=== PATIENT | female | born 1940 | race Caucasian/White ===

== ENCOUNTER 2016-09-14 17:30 | Inpatient (IN) | payer MEDICARE, OTHER ==
[~2016-09-14] VITALS: Ht 154.9 cm; Wt 79.3 kg
[~2016-09-14 17:30] MED LIST: ALEN35TA24 PO; CYAN1000P IM; FOLI800T12 PO; LORT5TAB PO; NEXI40CA PO; SIMV40 PO; SYNT25TA PO
[2016-09-14 17:42] VITALS: BP 158/88; PULSE 77; RESP 18; TEMP 98; O2SAT 99
[2016-09-14] MEDS ORDERED: SODIUM CHLOR 0.9% 1000 ML INJ 1,000 ML IV SCH (19:14)
[2016-09-14] MEDS ORDERED: SODIUM CHLORIDE 0.9% FLUSH 5 ML FLUSH IVF PRN (19:15)
[2016-09-14] MEDS ORDERED: ONDANSETRON HCL 4 MG/2 ML VIAL IVP ONE (19:15)
[2016-09-14 19:19] VITALS: BP 167/58; PULSE 85; RESP 16; TEMP 98; O2SAT 98
--- NOTE | 2016-09-14 19:21 | PD ---
HPI Chief Complaint: GI Complaint Time Seen by Provider: 19:06 Travel History International Travel<30 days: No Contact w/Intl Traveler<30days: No Traveled to known affect area: No History of Present Illness HPI The patient is a 76-year-old female that complains of bright red rectal bleeding since this morning. She states she almost fainted when she was on the commode. She does have bilateral lower quadrant cramping/pain. She has been nauseated all day and has not eaten or drank anything and states she feels dehydrated. She denies any vomiting or fever. She is a patient of Dr. Casandra Shetty in [place] and has no physician attached to this hospital. She has never had any episodes like this before. Her pain at this time as a 0/10. Her paper steamer is Dr. Tello who practices at [facility]. PFSH Past Medical History Diminished Hearing: No Gastrointestinal Disorders: Yes (IBS ) Medical other: Yes (Cataracts ) Immunizations Current: Yes Influenza Vaccination: Yes Past Surgical History Appendectomy: Yes Section: Yes (1966) Cholecystectomy: Yes Hysterectomy: Yes Tonsillectomy: Yes (1944) Social History Alcohol Use: No Tobacco Use: No Substance Use: No Allergies-Medications (Allergen,Severity, Reaction): Coded Allergies: Aspirin (Verified Allergy, Severe, FAINT, 09/14/16) Penicillin (Verified Allergy, Severe, LIMB NUMBNESS, 09/14/16) Diazepam (Verified Adverse Reaction, Severe, HALLUCINATIONS, 09/14/16) Codeine (Verified Adverse Reaction, Intermediate, VOMITING/DIARRHEA, ) Fluticasone (Verified Adverse Reaction, Intermediate, VOMITING/DIARRHEA, ) Keflex (Verified Adverse Reaction, Intermediate, VOMITING/DIARRHEA, ) Morphine (Verified Adverse Reaction, Intermediate, VOMITING/DIARRHEA, 09/14) Salmeterol Xinafoate (Verified Adverse Reaction, Intermediate, VOMITING/ DIARRHEA, 09/14/16) See Uncoded Allergy/Adv Reaction (Verified Adverse Reaction, Intermediate , VOMITING/DIARRHEA, 09/14/16) ALL MYACINS AND TIOTROPIUM BROMIDE Tetanus Immune Globulin (Verified Adverse Reaction, Intermediate, VOMITING /DIARRHEA, 09/14/16) Tetanus Toxoid (Verified Adverse Reaction, Intermediate, VOMITING/DIARRHEA , 09/14/16) Tramadol (Verified Adverse Reaction, Intermediate, VOMITING/DIARRHEA, 09/14) Reported Meds & Prescriptions Reported Meds & Active Scripts Active Lortab 5/500 (Acetaminophen/Hydrocodone Bitart) 5 Mg/500 Mg Tab 1 Tab PO Q6 Reported Vitamin B12 (Cyanocobalamin) 1,000 Mcg/Ml Inj 1,000 Mcg IM MONTHLY Alendronate Sodium 35 Mg Tab 35 Mg PO DAILY Folate (Folic Acid) 800 Mcg Tab 800 Mcg PO DAILY Synthroid (Levothyroxine Sodium) 25 Mcg Tab 25 Mcg PO DAILY Zocor 40 Mg Tab (Simvastatin) 40 Mg Tab 40 Mg PO HS Nexium (Esomeprazole) 40 Mg Cap 40 Mg PO DAILY Review of Systems Except as stated in HPI: all other systems reviewed are Neg Physical Exam Narrative GENERAL: The patient is alert, oriented 3 in minimal apparent distress with her abdominal discomfort. Her vital signs show blood pressure 158/88 but otherwise normal. She does not appear anemic. She does appear mildly dehydrated. SKIN: Warm and dry. HEAD: Atraumatic. Normocephalic. EYES: Pupils equal and round. No scleral icterus. No injection or drainage. ENT: No nasal bleeding or discharge. Mucous membranes pink and moist. NECK: Trachea midline. No JVD. CARDIOVASCULAR: Regular rate and rhythm. No murmur appreciated. RESPIRATORY: No accessory muscle use. Clear to auscultation. Breath sounds equal bilaterally. GASTROINTESTINAL: Abdomen soft, with slight discomfort to direct palpation in the bilateral lower quadrants, nondistended. Hepatic and splenic margins not palpable. No guarding or rebound is present. MUSCULOSKELETAL: No obvious deformities. No clubbing. No cyanosis. No edema. NEUROLOGICAL: Awake and alert. No obvious cranial nerve deficits. Motor grossly within normal limits. Normal speech. PSYCHIATRIC: Appropriate mood and affect; insight and judgment normal. RECTAL EXAM: No masses or tenderness, stool is bright red and strongly guaiac positive. No hemorrhoids are noted. No hemorrhoids are palpated within the rectum. Data Data Last Documented VS Vital Signs Date Time Temp Pulse Resp B/P Pulse Ox O2 Delivery O2 Flow Rate FiO2 09/14/16 19:26 98 Room Air 09/14/16 19:19 98.0 85 16 167/58 Orders Complete Blood Count With Diff (09/14/16 19:14) Comprehensive Metabolic Panel (09/14/16 19:14) Lipase (09/14/16 19:14) Prothrombin Time / Inr (Pt) (09/14/16 19:14) Act Partial Throm Time (Ptt) (09/14/16 19:14) Urinalysis - C+S If Indicated (09/14/16 19:14) Iv Access Insert/Monitor (09/14/16 19:14) Ecg Monitoring (09/14/16 19:14) Oximetry (09/14/16 19:14) Ondansetron Inj (Zofran Inj) (09/14/16 19:15) Sodium Chlor 0.9% 1000 Ml Inj (Ns 1000 M (09/14/16 19:14) Sodium Chloride 0.9% Flush (Ns Flush) (09/14/16 19:15) Urine Culture (09/14/16 19:45) Labs Laboratory Tests Test 09/14/16 09/14/16 19:45 20:27 Prothrombin Time 10.5 SEC Prothromb Time International 1.0 RATIO Ratio Activated Partial 21.7 SEC Thromboplast Time Urine Color YELLOW Urine Turbidity CLOUDY Urine pH 6.0 Urine Specific [place] 1.018 Urine Protein NEG mg/dL Urine Glucose (UA) NEG mg/dL Urine Ketones 15 mg/dL Urine Occult Blood SMALL Urine Nitrite POS Urine Bilirubin NEG Urine Leukocyte Esterase SMALL Urine RBC 3-5 /hpf Urine WBC 50-99 /hpf Urine Squamous Epithelial 6-8 /hpf Cells Urine Bacteria MANY /hpf Microscopic Urinalysis Comment CULTURE INDICATED Sodium Level 141 MEQ/L Potassium Level 4.2 MEQ/L Chloride Level 105 MEQ/L Carbon Dioxide Level 26.2 MEQ/L Anion Gap 10 MEQ/L Blood Urea Nitrogen 13 MG/DL Creatinine 1.30 MG/DL Estimat Glomerular Filtration 40 ML/MIN Rate Random Glucose 103 MG/DL Calcium Level 9.7 MG/DL Total Bilirubin 0.6 MG/DL Aspartate Amino Transf 27 U/L (AST/SGOT) Alanine Aminotransferase 28 U/L (ALT/SGPT) Alkaline Phosphatase 137 U/L Total Protein 7.1 GM/DL Albumin 3.5 GM/DL Lipase 67 U/L White Blood Count 11.2 TH/MM3 Red Blood Count 4.79 MIL/MM3 Hemoglobin 14.7 GM/DL Hematocrit 44.1 % Mean Corpuscular Volume 92.1 FL Mean Corpuscular Hemoglobin 30.6 PG Mean Corpuscular Hemoglobin 33.3 % Concent Red Cell Distribution Width 12.8 % Platelet Count 267 TH/MM3 Mean Platelet Volume 8.5 FL Neutrophils (%) (Auto) 84.2 % Lymphocytes (%) (Auto) 5.3 % Monocytes (%) (Auto) 7.1 % Eosinophils (%) (Auto) 0.3 % Basophils (%) (Auto) 3.1 % Neutrophils # (Auto) 9.5 TH/MM3 Lymphocytes # (Auto) 0.6 TH/MM3 Monocytes # (Auto) 0.8 TH/MM3 Eosinophils # (Auto) 0.0 TH/MM3 Basophils # (Auto) 0.3 TH/MM3 CBC Comment DIFF FINAL Differential Comment MDM Medical Decision Making Medical Screen Exam Complete: Yes Emergency Medical Condition: Yes Medical Record Reviewed: Yes Interpretation(s) The urine is cloudy with small occult blood and positive nitrite and small leukocyte esterase and 50-99 white cells and many bacteria and culture is indicated. The CBC is normal except for a white count of 11,200. The coagulation profile is normal. The complete metabolic profile shows a creatinine of 1.3, GFR 40, alkaline phosphatase of 137 but is otherwise unremarkable. The lipase is normal. Differential Diagnosis Diverticular bleed, bleeding from polyp, unspecified lower GI bleed Narrative Course The patient has been here in the emergency department for 2 hours and she has had 2 bloody stools while she was here. Her blood work is normal and she is not anemic. She does continue to bleed bright red blood from the rectum. The patient passes virtually all blood and no stool per rectum when she goes to the bathroom. Impression, lower GI bleed Plan, the patient is admitted to Dr. Bai. Critical Care Narrative The patient has lower GI bleeding. The bleeding is always bright red and may be from diverticular bleeding. Many other causes are possible. She continues to bleed rectally and has been to the bathroom several times. He is still cramping and feels like she needs to go again shortly. Physician Communication Physician Communication I discussed the patient with Dr. Bai. The patient will be admitted to her here at [place]. Diagnosis Primary Impression: Lower GI hemorrhage Admitting Information Admitting Physician Requests: Admit Rosalio Miller MD Sep 14, 2016 19:21
[2016-09-14 19:26] VITALS: O2SAT 98
[2016-09-14 19:57] LABS: BLOOD, URINE SMALL (NEG); GLUCOSE,URINE NEG (NEG); KETONE, URINE 15 mg/dL (NEG); NITRITE,URINE POS (NEG)
[2016-09-14 19:58] LABS: URINE COLOR YELLOW (YELLW/STRAW)
[2016-09-14 20:01] LABS: BACTERIA, URINE MANY /hpf; COMMENT (UR) CULTURE INDICATED; CULTURE IF INDICATED CULTURE INDICATED
[2016-09-14 20:05] LABS: CHLORIDE 105 MEQ/L (98-107); SODIUM (NA) 141 MEQ/L (136-145)
[2016-09-14 20:09] LABS: ANION GAP 10 MEQ/L (5-15); BICARBONATE 26.2 MEQ/L (21.0-32.0); BLOOD UREA NITROGEN 13 MG/DL (7-18)
[2016-09-14 20:12] LABS: ALT (GPT) 28 U/L (10-53); AST (GOT) 27 U/L (15-37); GLOMERULAR FILTRATION RATE 40 ML/MIN (>89)
[2016-09-14 20:13] LABS: POTASSIUM 4.2 MEQ/L (3.5-5.1)
[2016-09-14 20:14] LABS: TOTAL BILIRUBIN ADULT 0.6 MG/DL (0.2-1.0)
[2016-09-14 20:15] VITALS: BP 167/66; PULSE 96; RESP 18; O2SAT 97
[2016-09-14 20:15] LABS: ALKALINE PHOSPHATASE 137 U/L (45-117); APTT (PATIENT) 21.7 SEC (24.3-30.1); PROTHROMBIN TIME - PATIENT 10.5 SEC (9.8-11.6)
[2016-09-14 20:36] LABS: AUTOMATED NEUTROPHIL # 9.5 TH/MM3 (1.8-7.7); BASOPHIL # 0.3 TH/MM3 (0-0.2); BASOPHIL % 3.1 % (0.0-2.0); EOSINOPHIL % 0.3 % (0.0-4.0); HEMATOCRIT 44.1 % (35.0-46.0); HEMO FLAGS DIFF FINAL; LYMPH % 5.3 % (9.0-44.0); LYMPHOCYTE # 0.6 TH/MM3 (1.0-4.8); MEAN CELL VOLUME 92.1 FL (80.0-100.0); MEAN CORPUSCULAR HEMOGLOBIN 30.6 PG (27.0-34.0); MEAN CORPUSCULAR HGB CONC 33.3 % (32.0-36.0); MONO % 7.1 % (0.0-8.0); NEUT % 84.2 % (16.0-70.0); PLATELET COUNT 267 TH/MM3 (150-450); RED BLOOD COUNT 4.79 MIL/MM3 (4.00-5.30); RED CELL DISTRIBUTION WIDTH 12.8 % (11.6-17.2); WHITE BLOOD COUNT 11.2 TH/MM3 (4.0-11.0)
[2016-09-14] MEDS: SODIUM CHLOR 0.9% 1000 ML INJ 1,000 ML IV SCH (21:04)
[2016-09-14] MEDS ORDERED: LEVO50TA4 PO (21:14)
[2016-09-14 21:15] VITALS: BP 167/77; PULSE 99; RESP 18; TEMP 98.4; O2SAT 100
[2016-09-14] MEDS ORDERED: SODIUM CHLORIDE 0.9% FLUSH 5 ML FLUSH FLUSH PRN (21:15)
[2016-09-14] MEDS ORDERED: GABA300C5 PO (21:15)
[2016-09-14] MEDS ORDERED: BISACODYL 10 MG SUPP PR PRN (21:15)
[2016-09-14] MEDS ORDERED: SIMV20TA PO (21:15)
[2016-09-14] MEDS ORDERED: ONDANSETRON HCL 4 MG/2 ML VIAL IVP PRN (21:15)
[2016-09-14] MEDS ORDERED: ZANT150T2 PO (21:15)
[2016-09-14] MEDS ORDERED: MONT10TA4 PO (21:16)
[2016-09-14] MEDS ORDERED: HYDR-3580 PO (21:17)
[2016-09-14] MEDS ORDERED: CALC1TAB87 PO (21:18)
[2016-09-14] MEDS ORDERED: CYAN1000P IM (21:18)
[2016-09-14] MEDS ORDERED: VITA100018 PO (21:19)
[2016-09-14] MEDS ORDERED: CALC500T8 PO (21:21)
[2016-09-14] MEDS ORDERED: CALTTAB5 PO (21:21)
[2016-09-14] MEDS ORDERED: CIPROFLOXACIN 400 MG PREMIX 200 ML IV SCH (22:00)
[2016-09-14] MEDS ORDERED: PANTOPRAZOLE SODIUM 40 MG VIAL IV PUSH SCH (22:00)
[2016-09-14] MEDS ORDERED: diphenhydrAMINE HCL 50 MG/ML VIAL IV PUSH ONE (22:15)
[2016-09-14 22:51] VITALS: BP 155/64
[2016-09-14] MEDS: AZTREONAM INJ 1,000 MG in SODIUM CHLORIDE 0.9% INJ 100 ML IV SCH (23:37)
[2016-09-14] MEDS: ACETAMINOPHEN 325 MG TAB PO PRN (23:37)
[2016-09-15 02:12] VITALS: BP 120/61; PULSE 99; RESP 18; TEMP 98.3; O2SAT 95
[2016-09-15 04:00] VITALS: BP 118/72; PULSE 90; RESP 20; TEMP 98.3; O2SAT 98
[2016-09-15] MEDS: AZTREONAM INJ 1,000 MG in SODIUM CHLORIDE 0.9% INJ 100 ML IV SCH ×3 (06:21→22:10)
[2016-09-15 07:18] LABS: CHLORIDE 107 MEQ/L (98-107); POTASSIUM 4.1 MEQ/L (3.5-5.1); SODIUM (NA) 144 MEQ/L (136-145)
[2016-09-15 07:19] LABS: AUTOMATED NEUTROPHIL # 8.3 TH/MM3 (1.8-7.7); BASOPHIL # 0.1 TH/MM3 (0-0.2); BASOPHIL % 0.7 % (0.0-2.0); EOSINOPHIL # 0.1 TH/MM3 (0-0.4); EOSINOPHIL % 0.8 % (0.0-4.0); HEMATOCRIT 43.8 % (35.0-46.0); LYMPH % 9.2 % (9.0-44.0); MEAN CELL VOLUME 92.6 FL (80.0-100.0); MEAN CORPUSCULAR HEMOGLOBIN 30.6 PG (27.0-34.0); MONO % 8.2 % (0.0-8.0); NEUT % 81.1 % (16.0-70.0); PLATELET COUNT 267 TH/MM3 (150-450); RED BLOOD COUNT 4.73 MIL/MM3 (4.00-5.30); RED CELL DISTRIBUTION WIDTH 13.8 % (11.6-17.2); WHITE BLOOD COUNT 10.4 TH/MM3 (4.0-11.0)
[2016-09-15 07:22] LABS: HEMO FLAGS AUTO DIFF
[2016-09-15 07:44] LABS: ALKALINE PHOSPHATASE 125 U/L (45-117); ALT (GPT) 23 U/L (10-53); ANION GAP 8 MEQ/L (5-15); AST (GOT) 17 U/L (15-37); BICARBONATE 29.2 MEQ/L (21.0-32.0); BLOOD UREA NITROGEN 11 MG/DL (7-18); GLOMERULAR FILTRATION RATE 40 ML/MIN (>89); TOTAL BILIRUBIN ADULT 0.6 MG/DL (0.2-1.0)
[2016-09-15 08:00] VITALS: BP 128/57; PULSE 84; RESP 20; TEMP 98.2; O2SAT 96
[2016-09-15 08:27] LABS: SCAN/DIFF AUTO DIFF CONFIRMED
[2016-09-15] MEDS: SODIUM CHLOR 0.9% 1000 ML INJ 1,000 ML IV SCH (08:27)
[2016-09-15] MEDS: SODIUM CHLORIDE 0.9% FLUSH 5 ML FLUSH FLUSH SCH ×2 (08:27→20:11)
[2016-09-15] MEDS: PANTOPRAZOLE SODIUM 40 MG VIAL IV PUSH SCH ×2 (08:27→20:11)
--- NOTE | 2016-09-15 11:09 | HHI.HP ---
[facility] Primary Care Physician Unknown Admission Diagnosis lower GI bleed Diagnoses: Chief Complaint: GI bleeding Travel History International Travel<30 Days: No Contact w/Intl Traveler <30 Da: No Traveled to Known Affected Are: No History of Present Illness Patient is a 76-year-old female with history of hyperlipidemia and possible history of diverticular disease who complains of acute episode of bright red blood per rectum with some abdominal cramping. She had some nausea and recent diarrhea. She had been taken antidiarrheal [id number] and says that she has not been able to keep any food down. Patient has not had any actual vomiting per se but has been very nauseated and not eating. There is no fever. Her pain is mild and cramping and limited to the abdomen and relieved with defecation. She does see her soldering inspector Dr. Tello and has been recommended for further evaluation here in the hospital due to her bleeding. Hemoglobin has remained stable and her pain is relatively mild at this time. She she does still have some maroon colored stools. Review of Systems Constitutional: DENIES: Diaphoretic episodes, Fatigue, Fever, Weight gain, Weight loss, Chills, Dizziness, Change in appetite, Night Sweats Endocrine: DENIES: Abnorml menstrual pattern, Heat/cold intolerance, Polydipsia , Polyuria, Polyphagia Eyes: DENIES: Blurred vision, Diplopia, Eye inflammation, Eye pain, Vision loss , Photosensitivity, Double Vision Ears, nose, mouth, throat: DENIES: Tinnitus, Hearing loss, Vertigo, Nasal discharge, Oral lesions, Throat pain, Hoarseness, Ear Pain, Running Nose, Epistaxis, Sinus Pain, Toothache, Odynophagia Respiratory: DENIES: Apneas, Cough, Snoring, Wheezing, Hemoptysis, Sputum production, Shortness of breath Cardiovascular: DENIES: Chest pain, Palpitations, Syncope, Dyspnea on Exertion , PND, Lower Extremity Edema, Orthopnea, Claudication Gastrointestinal: COMPLAINS OF: Abdominal pain, Bloody stools, Diarrhea, DENIES: Black stools, Constipation, Nausea, Vomiting, Difficulty Swallowing, Anorexia Genitourinary: DENIES: Abnormal vaginal bleeding, Dysmenorrhea, Dyspareunia, Sexual dysfunction, Urinary frequency, Urinary incontinence, Urgency, Hematuria , Dysuria, Nocturia, Vaginal discharge Musculoskeletal: COMPLAINS OF: Back pain, DENIES: Joint pain, Muscle aches, Stiffness, Joint Swelling, Neck pain Integumentary: DENIES: Abnormal pigmentation, Pruritus, Rash, Nail changes, Breast masses, Breast skin changes, Nipple discharge Hematologic/lymphatic: DENIES: Bruising, Lymphadenopathy Immunologic/allergic: DENIES: Eczema, Urticaria Neurologic: DENIES: Abnormal gait, Headache, Localized weakness, Paresthesias, Seizures, Speech Problems, Tremor, Poor Balance Psychiatric: DENIES: Anxiety, Confusion, Mood changes, Depression, Hallucinations, Agitation, Suicidal Ideation, Homicidal Ideation, Delusions Past Family Social History Past Medical History Diverticular disease Osteoporosis Hypothyroidism Hyperlipidemia Past Surgical History Appendectomy Cholecystectomy Hysterectomy Tonsillectomy Reported Medications Reviewed within the medical record, also takes ranitidine for heartburn and an antidiarrheal [id number] Allergies: Coded Allergies: Aspirin (Verified Allergy, Severe, FAINT, 09/14/16) Penicillin (Verified Allergy, Severe, LIMB NUMBNESS, 09/14/16) Ciprofloxacin (Verified Allergy, Intermediate, Itching, 09/14/16) Diazepam (Verified Adverse Reaction, Severe, HALLUCINATIONS, 09/14/16) Codeine (Verified Adverse Reaction, Intermediate, VOMITING/DIARRHEA, ) Fluticasone (Verified Adverse Reaction, Intermediate, VOMITING/DIARRHEA, ) Keflex (Verified Adverse Reaction, Intermediate, VOMITING/DIARRHEA, ) Morphine (Verified Adverse Reaction, Intermediate, VOMITING/DIARRHEA, 09/14) Salmeterol Xinafoate (Verified Adverse Reaction, Intermediate, VOMITING/ DIARRHEA, 09/14/16) See Uncoded Allergy/Adv Reaction (Verified Adverse Reaction, Intermediate , VOMITING/DIARRHEA, 09/14/16) ALL MYACINS AND TIOTROPIUM BROMIDE Tetanus Immune Globulin (Verified Adverse Reaction, Intermediate, VOMITING /DIARRHEA, 09/14/16) Tetanus Toxoid (Verified Adverse Reaction, Intermediate, VOMITING/DIARRHEA , 09/14/16) Tramadol (Verified Adverse Reaction, Intermediate, VOMITING/DIARRHEA, 09/14) Active Ordered Medications Reviewed in the medical record Family History Sister has bowel symptoms similar to her ears without a diagnosis Father from liver failure Social History No current tobacco or alcohol dependency, (newlywed) Physical Exam Vital Signs Vital Signs Date Time Temp Pulse Resp B/P Pulse Ox O2 Delivery O2 Flow Rate FiO2 09/15/16 04:00 98.3 90 20 118/72 98 09/15/16 02:12 98.3 99 18 120/61 95 09/15/16 00:37 18 09/14/16 22:51 100 16 155/64 99 09/14/16 21:15 98.4 99 18 167/77 100 Room Air 09/14/16 20:15 96 18 167/66 97 Room Air 09/14/16 19:26 98 Room Air 09/14/16 19:19 98.0 85 16 167/58 98 Room Air 09/14/16 19:17 16 09/14/16 17:42 98.0 77 18 158/88 99 Physical Exam GENERAL: This is a well-nourished, well-developed patient, in no apparent distress. SKIN: No rashes, ecchymoses or lesions. Cool and dry. HEAD: Atraumatic. Normocephalic. No temporal or scalp tenderness. EYES: Pupils equal round and reactive. Extraocular motions intact. No scleral icterus. No injection or drainage. ENT: Nose without bleeding, purulent drainage or septal hematoma. Throat without erythema, tonsillar hypertrophy or exudate. Uvula midline. Airway patent. NECK: Trachea midline. No JVD or lymphadenopathy. Supple, nontender, no meningeal signs. CARDIOVASCULAR: Regular rate and rhythm without murmurs, gallops, or rubs. RESPIRATORY: Clear to auscultation. Breath sounds equal bilaterally. No wheezes , rales, or rhonchi. GASTROINTESTINAL: Abdomen soft, non-tender, nondistended. No hepato-splenomegaly , or palpable masses. No guarding. MUSCULOSKELETAL: Extremities without clubbing, cyanosis, or edema. No joint tenderness, effusion, or edema noted. No calf tenderness. Negative Homans sign bilaterally. NEUROLOGICAL: Awake and alert. Cranial nerves II through XII intact. Motor and sensory grossly within normal limits. Five out of 5 muscle strength in all muscle groups. Normal speech. Laboratory Laboratory Tests Test 09/14/16 09/14/16 09/15/16 19:45 20:27 06:55 Prothrombin Time 10.5 Prothromb Time International 1.0 Ratio Activated Partial 21.7 Thromboplast Time Urine Color YELLOW Urine Turbidity CLOUDY Urine pH 6.0 Urine Specific [place] 1.018 Urine Protein NEG Urine Glucose (UA) NEG Urine Ketones 15 Urine Occult Blood SMALL Urine Nitrite POS Urine Bilirubin NEG Urine Leukocyte Esterase SMALL Urine RBC 3-5 Urine WBC 50-99 Urine Squamous Epithelial 6-8 Cells Urine Bacteria MANY Microscopic Urinalysis Comment CULTURE INDICATED Sodium Level 141 144 Potassium Level 4.2 4.1 Chloride Level 105 107 Carbon Dioxide Level 26.2 29.2 Anion Gap 10 8 Blood Urea Nitrogen 13 11 Creatinine 1.30 1.30 Estimat Glomerular Filtration 40 40 Rate Random Glucose 103 101 Calcium Level 9.7 8.4 Total Bilirubin 0.6 0.6 Aspartate Amino Transf 27 17 (AST/SGOT) Alanine Aminotransferase 28 23 (ALT/SGPT) Alkaline Phosphatase 137 125 Total Protein 7.1 6.2 Albumin 3.5 3.1 Lipase 67 White Blood Count 11.2 10.4 Red Blood Count 4.79 4.73 Hemoglobin 14.7 14.5 Hematocrit 44.1 43.8 Mean Corpuscular Volume 92.1 92.6 Mean Corpuscular Hemoglobin 30.6 30.6 Mean Corpuscular Hemoglobin 33.3 33.0 Concent Red Cell Distribution Width 12.8 13.8 Platelet Count 267 267 Mean Platelet Volume 8.5 8.6 Neutrophils (%) (Auto) 84.2 81.1 Lymphocytes (%) (Auto) 5.3 9.2 Monocytes (%) (Auto) 7.1 8.2 Eosinophils (%) (Auto) 0.3 0.8 Basophils (%) (Auto) 3.1 0.7 Neutrophils # (Auto) 9.5 8.3 Lymphocytes # (Auto) 0.6 1.0 Monocytes # (Auto) 0.8 0.9 Eosinophils # (Auto) 0.0 0.1 Basophils # (Auto) 0.3 0.1 CBC Comment DIFF FINAL AUTO DIFF Differential Comment AUTO DIFF CONFIRMED Date/Time Procedure Status Source Growth 09/14/16 19:45 Urine Culture Received Urine Clean Catch Pending Result Diagram: 09/15/1665409/15/16 06 Assessment and Plan Problem List: (1) GI bleed ICD Code: K92.2 Status: Acute Plan: Patient normally follows up with Dr.DiCarle GI consult pending Continue Protonix CT abdomen pelvis given patient's history of diverticular disease Continue empiric aztreonam for possible diverticulitis (2) Hypothyroidism ICD Code: E03.9 Status: Acute Plan: Continue Synthroid (3) Hyperlipidemia ICD Code: E78.5 Status: Acute Plan: Continue Zocor Physician Certification 2 Midnight Certification Type: Admission for Inpatient Services Order for Inpatient Services The services are ordered in accordance with Medicare regulations or non- Medicare payer requirements, as applicable. In the case of services not specified as inpatient-only, they are appropriately provided as inpatient services in accordance with the 2-midnight benchmark. Estimated LOS (days): 3 3 days is the estimated time the patient will need to remain in the hospital, assuming treatment plan goals are met and no additional complications. Post-Hospital Plan: Jeanne Diaz MD Sep 15, 2016 11:08
[2016-09-15 12:00] VITALS: BP 142/69; PULSE 85; RESP 20; TEMP 96; O2SAT 97
[2016-09-15] MEDS ORDERED: DIATRIZOATE MEGLUM/DIATRIZOATE SOD 9 ML CUP PO ONE (12:00)
--- NOTE | 2016-09-15 15:38 | PD.CONS ---
HPI History of Present Illness This is a 76 year old old female with history of hyperlipidemia and diverticulosis, who was in her usual state of health till yesterday morning when she developed acute episodes of bright red blood per rectum with some abdominal cramping. She had some nausea but no vomiting. Reports chronic diarrhea for years, this averages about 4 loose stools daily. By report, patient was evaluated by Dr. Samayoa and under went colonoscopy in February of last year to rule out colitis, however, this was normal colonoscopy and failed to reveal any abnormalities. She was advised to take Imodium as needed. A month ago , she was started on Hydrocodone and that helped slow down the diarrhea. She reports chronic GERD which was maintained by Nexium, but that was discontinued thinking it might be the cause of the diarrhea, currently she is taking Zantac at home. She does still have some maroon colored stools that started yesterday and continued through out the day till today morning, but the bleeding is less in amount. The pain is lower abdomen, some relief with defecation. She denies previous hx of this, denies alcohol, NSAIDs or blood thinner. Last EGD was many years ago. (Josselyn Ellsworth) PFSH Past Medical History Diverticular disease Osteoporosis Hypothyroidism Hyperlipidemia Past Surgical History Appendectomy Cholecystectomy Hysterectomy Tonsillectomy (Josselyn Ellsworth) Coded Allergies: Aspirin (Verified Allergy, Severe, FAINT, 09/14/16) Penicillin (Verified Allergy, Severe, LIMB NUMBNESS, 09/14/16) Ciprofloxacin (Verified Allergy, Intermediate, Itching, 09/14/16) Diazepam (Verified Adverse Reaction, Severe, HALLUCINATIONS, 09/14/16) Codeine (Verified Adverse Reaction, Intermediate, VOMITING/DIARRHEA, ) Fluticasone (Verified Adverse Reaction, Intermediate, VOMITING/DIARRHEA, ) Keflex (Verified Adverse Reaction, Intermediate, VOMITING/DIARRHEA, ) Morphine (Verified Adverse Reaction, Intermediate, VOMITING/DIARRHEA, 09/14) Salmeterol Xinafoate (Verified Adverse Reaction, Intermediate, VOMITING/ DIARRHEA, 09/14/16) See Uncoded Allergy/Adv Reaction (Verified Adverse Reaction, Intermediate , VOMITING/DIARRHEA, 09/14/16) ALL MYACINS AND TIOTROPIUM BROMIDE Tetanus Immune Globulin (Verified Adverse Reaction, Intermediate, VOMITING /DIARRHEA, 09/14/16) Tetanus Toxoid (Verified Adverse Reaction, Intermediate, VOMITING/DIARRHEA , 09/14/16) Tramadol (Verified Adverse Reaction, Intermediate, VOMITING/DIARRHEA, 09/14) Medications Current Medications Medications (Trade) Dose Ordered Sig/Yumiko Route Start Time Stop Time Status Last Admin (NS Flush) 2 ml UNSCH PRN FLUSH 09/14/16 21:15 (NS Flush) 2 ml BID FLUSH 09/15/16 09:00 (Zofran Inj) 4 mg Q6H PRN IVP 09/14/16 21:15 (Dulcolax Supp) 10 mg DAILY PRN VA 09/14/16 21:15 Acetaminophen 650 mg 650 mg Q6H PRN PO 09/14/16 21:15 09/14/16 23:37 (Azactam Inj/NS Inj) 100 ml @ 200 mls/hr Q8HR IV 09/14/16 22:35 09/15/16 13:32 (Protonix Inj) 40 mg Q12HR IV PUSH 09/15/16 09:00 09/15/16 08:27 Family History Sister has bowel symptoms similar to her ears without a diagnosis Father from liver failure Social History No current tobacco or alcohol dependency, (Josselyn Ellsworth) Review of Systems Constitutional: COMPLAINS OF: Change in appetite, DENIES: Fatigue, Fever Endocrine: DENIES: Polyuria Eyes: DENIES: Double Vision Ears, nose, mouth, throat: DENIES: Hoarseness Respiratory: DENIES: Shortness of breath Cardiovascular: DENIES: Lower Extremity Edema Gastrointestinal: COMPLAINS OF: Abdominal pain, Bloody stools, Diarrhea, Nausea , DENIES: Black stools, Constipation, Vomiting, Difficulty Swallowing, Anorexia , Odynophagia, Swelling of Abdomen, Heartburn, Hematemesis Genitourinary: DENIES: Hematuria Musculoskeletal: DENIES: Neck pain Integumentary: DENIES: Jaundice Hematologic/lymphatic: DENIES: Bruising Immunologic/allergic: DENIES: Eczema Neurologic: DENIES: Abnormal gait Psychiatric: DENIES: Anxiety (Josselyn Ellsworth) GI Exam Vitals I&O Vital Signs Date Time Temp Pulse Resp B/P Pulse Ox O2 Delivery O2 Flow Rate FiO2 09/15/16 12:00 96.0 85 20 142/69 97 09/15/16 08:00 98.2 84 20 128/57 96 09/15/16 04:00 98.3 90 20 118/72 98 09/15/16 02:12 98.3 99 18 120/61 95 09/15/16 00:37 18 09/14/16 22:51 100 16 155/64 99 09/14/16 21:15 98.4 99 18 167/77 100 Room Air 09/14/16 20:15 96 18 167/66 97 Room Air 09/14/16 19:26 98 Room Air 09/14/16 19:19 98.0 85 16 167/58 98 Room Air 09/14/16 19:17 16 09/14/16 17:42 98.0 77 18 158/88 99 I/O 09/14/16 09/14/16 09/14/16 09/15/16 09/15/16 09/15/16 07:00 15:00 23:00 07:00 15:00 23:00 Intake Total 1000 ml Balance 1000 ml Intake IV Total 1000 ml # Voids 4 Laboratory Test 09/14/16 09/14/16 09/15/16 19:45 20:27 06:55 Prothrombin Time 10.5 SEC Prothromb Time International 1.0 RATIO Ratio Activated Partial 21.7 SEC Thromboplast Time Urine Color YELLOW Urine Turbidity CLOUDY Urine pH 6.0 Urine Specific [place] 1.018 Urine Protein NEG mg/dL Urine Glucose (UA) NEG mg/dL Urine Ketones 15 mg/dL Urine Occult Blood SMALL Urine Nitrite POS Urine Bilirubin NEG Urine Leukocyte Esterase SMALL Urine RBC 3-5 /hpf Urine WBC 50-99 /hpf Urine Squamous Epithelial 6-8 /hpf Cells Urine Bacteria MANY /hpf Microscopic Urinalysis Comment CULTURE INDICATED Sodium Level 141 MEQ/L 144 MEQ/L Potassium Level 4.2 MEQ/L 4.1 MEQ/L Chloride Level 105 MEQ/L 107 MEQ/L Carbon Dioxide Level 26.2 MEQ/L 29.2 MEQ/L Anion Gap 10 MEQ/L 8 MEQ/L Blood Urea Nitrogen 13 MG/DL 11 MG/DL Creatinine 1.30 MG/DL 1.30 MG/DL Estimat Glomerular Filtration 40 ML/MIN 40 ML/MIN Rate Random Glucose 103 MG/DL 101 MG/DL Calcium Level 9.7 MG/DL 8.4 MG/DL Total Bilirubin 0.6 MG/DL 0.6 MG/DL Aspartate Amino Transf 27 U/L 17 U/L (AST/SGOT) Alanine Aminotransferase 28 U/L 23 U/L (ALT/SGPT) Alkaline Phosphatase 137 U/L 125 U/L Total Protein 7.1 GM/DL 6.2 GM/DL Albumin 3.5 GM/DL 3.1 GM/DL Lipase 67 U/L White Blood Count 11.2 TH/MM3 10.4 TH/MM3 Red Blood Count 4.79 MIL/MM3 4.73 MIL/MM3 Hemoglobin 14.7 GM/DL 14.5 GM/DL Hematocrit 44.1 % 43.8 % Mean Corpuscular Volume 92.1 FL 92.6 FL Mean Corpuscular Hemoglobin 30.6 PG 30.6 PG Mean Corpuscular Hemoglobin 33.3 % 33.0 % Concent Red Cell Distribution Width 12.8 % 13.8 % Platelet Count 267 TH/MM3 267 TH/MM3 Mean Platelet Volume 8.5 FL 8.6 FL Neutrophils (%) (Auto) 84.2 % 81.1 % Lymphocytes (%) (Auto) 5.3 % 9.2 % Monocytes (%) (Auto) 7.1 % 8.2 % Eosinophils (%) (Auto) 0.3 % 0.8 % Basophils (%) (Auto) 3.1 % 0.7 % Neutrophils # (Auto) 9.5 TH/MM3 8.3 TH/MM3 Lymphocytes # (Auto) 0.6 TH/MM3 1.0 TH/MM3 Monocytes # (Auto) 0.8 TH/MM3 0.9 TH/MM3 Eosinophils # (Auto) 0.0 TH/MM3 0.1 TH/MM3 Basophils # (Auto) 0.3 TH/MM3 0.1 TH/MM3 CBC Comment DIFF FINAL AUTO DIFF Differential Comment AUTO DIFF CONFIRMED Date/Time Procedure Status Source Growth 09/14/16 19:45 Urine Culture Received Urine Clean Catch Pending Physical Examination HEENT: normocephalic; atraumatic; no jaundice. Throat is clear. NECK: Neck is supple, no JVD, no lymphadenopathy. CHEST: Chest is clear to auscultation and percussion. CARDIAC: Regular rate and rhythm with no murmur gallop or rubs. ABDOMEN: Soft, nondistended, diffused tenderness mostly on right and lower abd ; no hepatosplenomegaly; bowel sounds are present in all four quadrants. EXTREMITIES: No clubbing, cyanosis, or edema. SKIN: Normal; no rash; no jaundice. DIRECTOR PHARMACY SERVICES: No focal deficits; alert and oriented times three. (Josselyn Ellsworth) Assessment and Plan Plan - Lower GI bleed associated with abdominal cramps and nausea- patient was in her usual state of health till yesterday morning when she developed acute episodes of bright red blood per rectum with some abdominal cramping. She does still have some maroon colored stools that started yesterday and continued through out the day till today morning, but the bleeding is less in amount. The pain is lower abdomen, some relief with defecation. She denies previous hx of this, denies alcohol, NSAIDs or blood thinner. Last EGD was many years ago. Hgb stable at 14.5, hemodynamically stable - IBS- Reports chronic diarrhea for years, this averages about 4 loose stools daily. By report, patient was evaluated by Dr. Samayoa and under went colonoscopy in February of last year to rule out colitis, however, this was normal colonoscopy and failed to reveal any abnormalities. She was advised to take Imodium as needed. A month ago, she was started on Hydrocodone and that helped slow down the diarrhea. - Chronic GERD which was maintained by Nexium, but that was discontinued thinking it might be the cause of the diarrhea, currently she is taking Zantac at home. - Hyperlipemia per attending Plan: - Full liquid diet - Clear liquid tomorrow - Await CT - EGD/colonoscopy on Saturday unless, CT report contraindicates - Golytely tomorrow - Obtain consents - NPO Saturday mn - Monitor hh - Transfuse as needed - Notify GI for active bleeding - PPI - Patient seen and examined by Dr. Torres and myself and this note is written on her behalf. (Josselyn Ellsworth) Physician Comments seen, examined ct noted-inflammatory changes in descending, sigmoid colon stool studies iv antibiotics if worsening bleeding transfer to [facility] for now we will hold on egd/colonoscopy based on ct report we will await stool studies if no improvement consider at least flexisigmoidoscopy (Sabrina Torres MD) Josselyn Ellsworth Sep 15, 2016 15:38 Sabrian Torres MD Sep 15, 2016 19:07
[2016-09-15 16:00] VITALS: BP 133/70; PULSE 91; RESP 20; TEMP 97.6; O2SAT 95
--- NOTE | 2016-09-15 16:44 | RADHPO ---
EXAM DATE/TIME: 09/15/2016 14:42 [facility] COMPARISON: CT ABDOMEN & PELVIS W CONTRAST, May 24, 2013, 16:44. INDICATIONS : Rectal bleeding yesterday, lower abdominal pain for two days. ORAL CONTRAST: Partial prescribed oral contrast ingested. RADIATION DOSE: 14.91 CTDIvol (mGy) MEDICAL HISTORY : Gastroesophageal reflux disease. SURGICAL HISTORY : Cholecystectomy. Appendectomy.Hysterectomy. ENCOUNTER: Initial ACUITY: 1 day PAIN SCALE: 5/10 LOCATION: Bilateral lower quadrant abdomen TECHNIQUE: Volumetric scanning of the abdomen and pelvis was performed. Using automated exposure control and ad justment of the mA and/or kV according to patient size, radiation dose was kept as low as reasonably achievable to obtain optimal diagnostic quality images. FINDINGS: LOWER LUNGS: The visualized lower lungs are clear. LIVER: Diffuse fatty change. No focal lesions on this noncontrast study. Prior cholecystectomy. No dilati on of the intra-or extrahepatic biliary system. SPLEEN: Normal size without lesion. PANCREAS: Fatty atrophy of the pancreas. No focal lesion. KIDNEYS: Normal in size and shape. There is no mass, stone, or hydronephrosis. ADRENAL GLANDS: Within normal limits. VASCULAR: There is no aortic aneurysm. BOWEL/MESENTERY: No dilated loops of small or large bowel. Oral contrast passes through to the cecum. There are mult iple moderate-sized diverticula throughout the sigmoid colon which are similar in appearance to prior CT scan 2012. The lumen is not well seen and some diffuse wall thickening cannot be excluded. Brown belkis, no induration of the fat about the sigmoid and no free fluid. The descending colon has an abnor mal appearance with diffuse wall thickening and narrowing of the lumen and some induration of the fat about the descending colon. There are no diverticula discernible in the area of thickened wall.. ABDOMINAL WALL: Within normal limits. RETROPERITONEUM: There is no lymphadenopathy. BLADDER: No wall thickening or mass. REPRODUCTIVE: Within normal limits. INGUINAL: There is no lymphadenopathy or hernia. MUSCULOSKELETAL: Within normal limits for patient age. CONCLUSION: 1. Abnormal appearance to the descending colon with diffuse wall thickening and some mild induration of the fat in the paracolic gutter. There are no diverticula seen in the descending colon suggesting that this may be infectious or inflammatory process. 2. Sigmoid diverticulosis without evidence of induration of the fat about the sigmoid and without la e fluid. 3. Steatosis of the liver. Patricio Ramirez MD on September 15, 2016 at 16:37 Board Certified Radiologist. This report was verified electronically.
[2016-09-15] MEDS: metroNIDAZOLE 500 MG INJ 100 ML IV SCH (17:37)
[2016-09-15 20:00] VITALS: BP 119/56; PULSE 89; RESP 20; TEMP 98.8; O2SAT 96
[2016-09-16] VITALS: BP 109/49; PULSE 93; RESP 16; TEMP 98.3; O2SAT 94
[2016-09-16] MEDS: metroNIDAZOLE 500 MG INJ 100 ML IV SCH ×3 (01:06→16:15)
[2016-09-16 01:24] LABS: C. DIFF EPI 027 PRESUMPTIVE NEGATIVE (NEGATIVE); C. DIFF TOXIN PCR NEGATIVE (NEGATIVE)
[2016-09-16] MEDS: AZTREONAM INJ 1,000 MG in SODIUM CHLORIDE 0.9% INJ 100 ML IV SCH ×3 (05:59→21:08)
[2016-09-16 07:47] LABS: AUTOMATED NEUTROPHIL # 9.7 TH/MM3 (1.8-7.7); BASOPHIL # 0.1 TH/MM3 (0-0.2); BASOPHIL % 0.5 % (0.0-2.0); EOSINOPHIL # 0.1 TH/MM3 (0-0.4); EOSINOPHIL % 1.1 % (0.0-4.0); HEMATOCRIT 39.6 % (35.0-46.0); LYMPH % 6.7 % (9.0-44.0); LYMPHOCYTE # 0.8 TH/MM3 (1.0-4.8); MEAN CELL VOLUME 92.3 FL (80.0-100.0); MEAN CORPUSCULAR HEMOGLOBIN 30.3 PG (27.0-34.0); MEAN CORPUSCULAR HGB CONC 32.8 % (32.0-36.0); MONO % 6.4 % (0.0-8.0); NEUT % 85.3 % (16.0-70.0); PLATELET COUNT 225 TH/MM3 (150-450); RED BLOOD COUNT 4.29 MIL/MM3 (4.00-5.30); RED CELL DISTRIBUTION WIDTH 13.1 % (11.6-17.2); WHITE BLOOD COUNT 11.4 TH/MM3 (4.0-11.0)
[2016-09-16 07:55] LABS: HEMO FLAGS DIFF FINAL
[2016-09-16 08:00] VITALS: BP 120/65; PULSE 80; RESP 16; TEMP 97.9; O2SAT 95
[2016-09-16] MEDS: SODIUM CHLORIDE 0.9% FLUSH 5 ML FLUSH FLUSH SCH ×2 (08:43→21:08)
[2016-09-16] MEDS: PANTOPRAZOLE SODIUM 40 MG VIAL IV PUSH SCH ×2 (08:43→21:08)
--- NOTE | 2016-09-16 09:43 | HHI.PR ---
Subjective Remarks Follow-up for BRBPR. Patient admits to diarrhea but states it is not completely liquid. She states it started yesterday afternoon. Admits to bright red blood on the toilet tissue. Objective Vitals Vital Signs Date Time Temp Pulse Resp B/P Pulse Ox O2 Delivery O2 Flow Rate FiO2 09/16/16 08:00 97.9 80 16 120/65 95 09/16/16 00:00 98.3 93 16 109/49 94 09/15/16 20:00 98.8 89 20 119/56 96 09/15/16 16:00 97.6 91 20 133/70 95 09/15/16 12:00 96.0 85 20 142/69 97 I/O 09/15/16 09/15/16 09/15/16 09/16/16 09/16/16 09/16/16 07:00 15:00 23:00 07:00 15:00 23:00 Intake Total 500 ml 450 ml Balance 500 ml 450 ml Intake IV Total 500 ml 450 ml # Voids 4 # Bowel Movements 2 Result Diagram: 09/16/16 0658 09/15/16 0655 Imaging Last Impressions Abdomen/Pelvis CT 09/15/16 0000 Signed Impressions: Service Date/Time: Thursday, September 15, 2016 14:42 - CONCLUSION: 1. Abnormal appearance to the descending colon with diffuse wall thickening and some mild induration of the fat in the paracolic gutter. There are no diverticula seen in the descending colon suggesting that this may be infectious or inflammatory process. 2. Sigmoid diverticulosis without evidence of induration of the fat about the sigmoid and without free fluid. 3. Steatosis of the liver. Patricio Ramirez MD Objective Remarks GENERAL: Well-nourished well-developed patient in no apparent distress. SKIN: Warm and dry. CARDIOVASCULAR: Regular rate and rhythm. RESPIRATORY: No accessory muscle use. Clear to auscultation. Breath sounds equal bilaterally. GASTROINTESTINAL: Normoactive bowel sounds. Abdomen soft, nondistended. Significantly tender to palpation over the left lower quadrant. No guarding. NEUROLOGICAL: Awake and alert. Motor grossly within normal limits. Ambulates. Normal speech. PSYCHIATRIC: Appropriate mood and affect; insight and judgment normal. Urinary Catheter: No Vascular Central Line Catheter: No A/P Problem List: (1) GI bleed ICD Code: K92.2 Status: Acute (2) Diverticulitis ICD Code: K57.92 Status: Acute (3) Hypothyroidism ICD Code: E03.9 Status: Acute (4) Hyperlipidemia ICD Code: E78.5 Status: Acute (5) UTI (urinary tract infection) ICD Code: N39.0 Status: Acute Assessment and Plan GI bleed Acute Patient normally follows up with Dr. Ritter GI consultation appreciated. Plan was for scope tomorrow, but this has been cancelled likely due to acute infection. GI following. Hemoglobin stable Continue Protonix Diverticulosis with acute diverticulitis Patient has diarrhea CT abdomen and pelvis as above Only mild leukocytosis but neutrophils elevated. Continue aztreonam and Flagyl. Cr mildly elevated which could be due to aztreonam. Monitor BMP. Stool studies pending. C.diff negative UTI UA reviewed. Urine culture with gram-negative rods. Continue antibiotics as above. Hypothyroidism Continue Synthroid Hyperlipidemia Continue Zocor Attending Statement The exam, history, and the medical decision-making described in the above note were completed with my assistance as the dictating practitioner. I attest that I had a bruj-[id number] encounter with the patient on the same day, and personally performed all of the history, exam, or medical decision making. I reviewed and agree with the plan. Patient seen and evaluated today in follow-up for acute diverticulitis. Still complaining of some abdominal cramping. Plan of treatment discussed with patient. We'll continue with IV antibiotics. Patient may need outpatient endoscopy. Still with some gastrointestinal bleeding Follow UA with micro; IV abx covering likely organisms If worsening bleeding transfer to [facility] Sep 16, 2016 09:43 Jeanne Bonds MD Sep 16, 2016 14:04
[2016-09-16 12:00] VITALS: BP 134/63; PULSE 75; RESP 16; TEMP 96.7; O2SAT 96
[2016-09-16 16:00] VITALS: BP 143/66; PULSE 89; RESP 16; TEMP 97.5; O2SAT 94
[2016-09-16] MEDS ORDERED: PEG (High)/E-LYTE SOLN 4000 ML BTL PO ONE (16:00)
--- NOTE | 2016-09-16 18:00 | HHI.GIFU ---
GI Follow-up Note Consult Follow-up Subjective: Patient laying in bed comfortably, on clear liquid diet, feeling better overall, still some bleeding.CT noted suspect ischemic colitis-favored vs infectious, inflammatory bowel disease, less likely diverticulitis in view of bleeding Objective: PHYSICAL EXAMINATION: Vitals signs stable No fever Vital Signs Date Time Temp Pulse Resp B/P Pulse Ox O2 Delivery O2 Flow Rate FiO2 09/16/16 16:00 97.5 89 16 143/66 94 09/16/16 12:00 96.7 75 16 134/63 96 HEENT: Pupils round and reactive to light; normocephalic; atraumatic; no jaundice. Throat is clear. NECK: Neck is supple, no JVD, no lymphadenopathy. CHEST: Chest is clear to auscultation and percussion. CARDIAC: Regular rate and rhythm with no murmur gallop or rubs. ABDOMEN: Soft, nondistended, tender llq and luq ; no hepatosplenomegaly; bowel sounds are present in all four quadrants. EXTREMITIES: No clubbing, cyanosis, or edema. SKIN: Normal; no rash; no jaundice. PARAPROFESSIONAL AIDE: No focal deficits; alert and oriented times three. Available Data (labs, X- Rays, Procedues) : Laboratory Tests Test 09/14/16 09/14/16 09/15/16 09/15/16 19:45 20:27 06:55 23:00 Prothrombin Time 10.5 SEC Prothromb Time International 1.0 RATIO Ratio Activated Partial 21.7 SEC Thromboplast Time Sodium Level 141 MEQ/L 144 MEQ/L Potassium Level 4.2 MEQ/L 4.1 MEQ/L Chloride Level 105 MEQ/L 107 MEQ/L Carbon Dioxide Level 26.2 MEQ/L 29.2 MEQ/L Anion Gap 10 MEQ/L 8 MEQ/L Blood Urea Nitrogen 13 MG/DL 11 MG/DL Creatinine 1.30 MG/DL 1.30 MG/DL Estimat Glomerular Filtration 40 ML/MIN 40 ML/MIN Rate Random Glucose 103 MG/DL 101 MG/DL Calcium Level 9.7 MG/DL 8.4 MG/DL Total Bilirubin 0.6 MG/DL 0.6 MG/DL Aspartate Amino Transf 27 U/L 17 U/L (AST/SGOT) Alanine Aminotransferase 28 U/L 23 U/L (ALT/SGPT) Alkaline Phosphatase 137 U/L 125 U/L Total Protein 7.1 GM/DL 6.2 GM/DL Albumin 3.5 GM/DL 3.1 GM/DL Lipase 67 U/L Urine Color YELLOW Urine Turbidity CLOUDY Urine pH 6.0 Urine Specific [place] 1.018 Urine Protein NEG mg/dL Urine Glucose (UA) NEG mg/dL Urine Ketones 15 mg/dL Urine Occult Blood SMALL Urine Nitrite POS Urine Bilirubin NEG Urine Leukocyte Esterase SMALL Urine RBC 3-5 /hpf Urine WBC 50-99 /hpf Urine Squamous Epithelial 6-8 /hpf Cells Urine Bacteria MANY /hpf Microscopic Urinalysis Comment CULTURE INDICATED White Blood Count 11.2 TH/MM3 10.4 TH/MM3 Red Blood Count 4.79 MIL/MM3 4.73 MIL/MM3 Hemoglobin 14.7 GM/DL 14.5 GM/DL Hematocrit 44.1 % 43.8 % Mean Corpuscular Volume 92.1 FL 92.6 FL Mean Corpuscular Hemoglobin 30.6 PG 30.6 PG Mean Corpuscular Hemoglobin 33.3 % 33.0 % Concent Red Cell Distribution Width 12.8 % 13.8 % Platelet Count 267 TH/MM3 267 TH/MM3 Mean Platelet Volume 8.5 FL 8.6 FL Neutrophils (%) (Auto) 84.2 % 81.1 % Lymphocytes (%) (Auto) 5.3 % 9.2 % Monocytes (%) (Auto) 7.1 % 8.2 % Eosinophils (%) (Auto) 0.3 % 0.8 % Basophils (%) (Auto) 3.1 % 0.7 % Neutrophils # (Auto) 9.5 TH/MM3 8.3 TH/MM3 Lymphocytes # (Auto) 0.6 TH/MM3 1.0 TH/MM3 Monocytes # (Auto) 0.8 TH/MM3 0.9 TH/MM3 Eosinophils # (Auto) 0.0 TH/MM3 0.1 TH/MM3 Basophils # (Auto) 0.3 TH/MM3 0.1 TH/MM3 CBC Comment DIFF FINAL AUTO DIFF Differential Comment AUTO DIFF CONFIRMED Stool C. difficile Toxin (PCR) NEGATIVE Stl C. difficile Toxin PRESUMPTIVE Epiderm 027 NEGATIVE Test 09/16/16 06:58 White Blood Count 11.4 TH/MM3 Red Blood Count 4.29 MIL/MM3 Hemoglobin 13.0 GM/DL Hematocrit 39.6 % Mean Corpuscular Volume 92.3 FL Mean Corpuscular Hemoglobin 30.3 PG Mean Corpuscular Hemoglobin 32.8 % Concent Red Cell Distribution Width 13.1 % Platelet Count 225 TH/MM3 Mean Platelet Volume 8.8 FL Neutrophils (%) (Auto) 85.3 % Lymphocytes (%) (Auto) 6.7 % Monocytes (%) (Auto) 6.4 % Eosinophils (%) (Auto) 1.1 % Basophils (%) (Auto) 0.5 % Neutrophils # (Auto) 9.7 TH/MM3 Lymphocytes # (Auto) 0.8 TH/MM3 Monocytes # (Auto) 0.7 TH/MM3 Eosinophils # (Auto) 0.1 TH/MM3 Basophils # (Auto) 0.1 TH/MM3 CBC Comment DIFF FINAL Differential Comment ASSESSMENT/PLAN: rectal bleeding secondary depending colon inflammatory process-suspect ischemic colitis-favored vs infectious colitis vs IBD, less likely diverticulitis in view of bleeding abdominal pain in luq/llq secondary the above history of irritable bowel syndrome -diarrhea type Recommendations continue iv antibiotics flexisigmoidoscopy in am colonoscopy 6-8 weeks, unless indicated otherwise It was a pleasure seeing Myesha Jackson. Thank you for this consult. Entered by: Sabrina Barrientos MD Sep 16, 2016 18:00
[2016-09-16 20:00] VITALS: BP 139/67; PULSE 80; RESP 18; TEMP 96.3; O2SAT 98
[2016-09-17] MEDS: metroNIDAZOLE 500 MG INJ 100 ML IV SCH ×4 (00:52→20:46)
[2016-09-17] MEDS ORDERED: SOD PHOSPHATE/SOD BIPHOSPHATE (ADULT) ENEMA 133ML PR ONE (05:00)
[2016-09-17] MEDS: AZTREONAM INJ 1,000 MG in SODIUM CHLORIDE 0.9% INJ 100 ML IV SCH ×2 (05:00→14:14)
--- NOTE | 2016-09-17 06:12 | EKG ---
Date Performed: 09/16/2016 Time Performed: 20:25:52 PTAGE: 76 years EKG: Sinus rhythm . Poor R wave progression Lateral T wave changes are nonspecific Abnormal ECG NO PREVIOUS TRACING DOCTOR: Seb Vital Interpretating Date/Time 09/17/2016 06:10:23
[2016-09-17 06:45] VITALS: BP 117/55; PULSE 78; RESP 16; TEMP 98.6; O2SAT 94
[2016-09-17] MEDS ORDERED: PROPOFOL 200 MG/20 ML AMP IV ONE (07:40)
--- NOTE | 2016-09-17 08:12 | HHI.GIFU ---
Subjective Remarks doing ok, no sign of active bleed today. loose stool Objective Vitals I&O Vital Signs Date Time Temp Pulse Resp B/P Pulse Ox O2 Delivery O2 Flow Rate FiO2 09/17/16 06:45 98.6 78 16 117/55 94 09/16/16 20:00 96.3 80 18 139/67 98 09/16/16 16:00 97.5 89 16 143/66 94 09/16/16 12:00 96.7 75 16 134/63 96 I/O 09/16/16 09/16/16 09/16/16 09/17/16 09/17/16 09/17/16 07:00 15:00 23:00 07:00 15:00 23:00 Intake Total 450 ml 540 ml 150 ml 240 ml Balance 450 ml 540 ml 150 ml 240 ml Intake Oral 540 ml 240 ml IV Total 450 ml 150 ml # Voids 4 2 3 # Bowel Movements 2 0 1 Laboratory Date/Time Procedure Status Source Growth 09/15/16 19:03 Cryptosporidium Exam Received Stool Stool Pending 09/15/16 19:03 Giardia Antigen (MATEO) Received Stool Stool Pending 09/15/16 19:03 - Final Complete Stool Stool NO ENTERIC PATHOGENS DETECTED BY PCR... 09/14/16 19:45 Urine Culture - Preliminary Resulted Urine Clean Catch Gram Negative Reg Physical Exam HEENT: Pupils round and reactive to light; normocephalic; atraumatic; no jaundice. Throat is clear. NECK: Neck is supple, no JVD, no lymphadenopathy. CHEST: Chest is clear to auscultation and percussion. CARDIAC: Regular rate and rhythm with no murmur gallop or rubs. ABDOMEN: Soft, nondistended, nontender; no hepatosplenomegaly; bowel sounds are present in all four quadrants. EXTREMITIES: No clubbing, cyanosis, or edema. SKIN: Normal; no rash; no jaundice. ICHTHYOLOGIST: No focal deficits; alert and oriented times three. Assessment and Plan Plan - Lower GI bleed associated with abdominal cramps and nausea- patient was in her usual state of health till yesterday morning when she developed acute episodes of bright red blood per rectum with some abdominal cramping. She does still have some maroon colored stools that started yesterday and continued through out the day till today morning, but the bleeding is less in amount. The pain is lower abdomen, some relief with defecation. She denies previous hx of this, denies alcohol, NSAIDs or blood thinner. Last EGD was many years ago. Hgb stable at 14.5, hemodynamically stable - IBS- Reports chronic diarrhea for years, this averages about 4 loose stools daily. By report, patient was evaluated by Dr. Samayoa and under went colonoscopy in February of last year to rule out colitis, however, this was normal colonoscopy and failed to reveal any abnormalities. She was advised to take Imodium as needed. A month ago, she was started on Hydrocodone and that helped slow down the diarrhea. - Chronic GERD which was maintained by Nexium, but that was discontinued thinking it might be the cause of the diarrhea, currently she is taking Zantac at home. - Hyperlipemia per attending 09-17-16 doing ok no GI bleed today, colonoscopy showed, small polyp ablated, significant ulceration in left colon C/w ischemia, and diverticulosis. Plan: - Full liquid diet advanced as tolerated - Await CT - Monitor hh - Transfuse as needed - Notify GI for active bleeding - PPI Johana Ro MD Sep 17, 2016 08:12
[2016-09-17] MEDS: PANTOPRAZOLE SODIUM 40 MG VIAL IV PUSH SCH (09:36)
[2016-09-17] MEDS: SODIUM CHLORIDE 0.9% FLUSH 5 ML FLUSH FLUSH SCH ×2 (09:36→20:51)
[2016-09-17] MEDS ORDERED: PANT40TA3 PO (11:44)
[2016-09-17] MEDS ORDERED: BACT400T PO (11:44)
[2016-09-17] MEDS ORDERED: METR-1 PO (11:44)
--- NOTE | 2016-09-17 11:45 | HHI.PR ---
Subjective Remarks Patient seen and evaluated today in follow-up for home gas intestinal bleeding. Bleeding appears to have resolved. Patient status post colonoscopy which show severe ulcerations sigmoid, and ascending colon consistent with ischemic bowel. Patient also with polyp and mild diverticular disease. Recommendations are for continuing antibiotics and follow-up with her sheriffs officer. Objective Vitals Vital Signs Date Time Temp Pulse Resp B/P Pulse Ox O2 Delivery O2 Flow Rate FiO2 09/17/16 08:22 69 16 111/69 100 09/17/16 08:12 77 15 111/62 100 09/17/16 08:02 98.5 88 16 113/62 100 09/17/16 06:45 98.6 78 16 117/55 94 09/16/16 20:00 96.3 80 18 139/67 98 09/16/16 16:00 97.5 89 16 143/66 94 09/16/16 12:00 96.7 75 16 134/63 96 I/O 09/16/16 09/16/16 09/16/16 09/17/16 09/17/16 09/17/16 07:00 15:00 23:00 07:00 15:00 23:00 Intake Total 450 ml 540 ml 150 ml 240 ml 500 ml Balance 450 ml 540 ml 150 ml 240 ml 500 ml Intake Oral 540 ml 240 ml IV Total 450 ml 150 ml Other 500 ml # Voids 4 2 3 # Bowel Movements 2 0 1 Result Diagram: 09/16/16 0658 09/15/16 0655 Imaging Last Impressions Abdomen/Pelvis CT 09/15/16 0000 Signed Impressions: Service Date/Time: Thursday, September 15, 2016 14:42 - CONCLUSION: 1. Abnormal appearance to the descending colon with diffuse wall thickening and some mild induration of the fat in the paracolic gutter. There are no diverticula seen in the descending colon suggesting that this may be infectious or inflammatory process. 2. Sigmoid diverticulosis without evidence of induration of the fat about the sigmoid and without free fluid. 3. Steatosis of the liver. Patricio Ramirez MD Objective Remarks GENERAL: This is a well-nourished, well-developed patient, in no apparent distress. CARDIOVASCULAR: Regular rate and rhythm without murmurs, gallops, or rubs. RESPIRATORY: Clear to auscultation. Breath sounds equal bilaterally. No wheezes , rales, or rhonchi. GASTROINTESTINAL: Abdomen soft, non-tender, nondistended. Normal active bowel sounds MUSCULOSKELETAL: Extremities without clubbing, cyanosis, or edema. NEURO: Alert & Oriented x4 to person, place, time, situation. Moves all ext x4 A/P Problem List: (1) GI bleed ICD Code: K92.2 Status: Acute Plan: appears due to ischemic colitis. Patient also with diverticulosis on endoscopy. HG stable (2) Diverticulitis ICD Code: K57.92 Status: Acute Plan: Continue Bactrim and Flagyl orally (3) UTI (urinary tract infection) ICD Code: N39.0 Status: Acute Plan: Klebsiella pneumonia positive, continue Bactrim Assessment and Plan Advance diet Activity as tolerated Transition to oral antibiotics Discharge Planning Likely discharge in Jeanne Cota MD Sep 17, 2016 11:45
[2016-09-17 12:25] VITALS: BP 125/73; PULSE 87; RESP 17; TEMP 97.3; O2SAT 94
[2016-09-17] MEDS: metroNIDAZOLE 500 MG TAB PO SCH ×2 (14:13→20:50)
[2016-09-17 17:38] VITALS: BP 120/57; PULSE 91; RESP 18; TEMP 98.4; O2SAT 96
[2016-09-17] MEDS: ACETAMINOPHEN 325 MG TAB PO PRN (18:05)
[2016-09-17 20:00] VITALS: BP 113/56; PULSE 86; RESP 18; TEMP 98.2; O2SAT 92
[2016-09-17] MEDS: SULFAMETHOXAZOLE-TRIMETHOPRIM 400-80 MG TAB PO SCH (21:19)
[2016-09-18] VITALS: BP 145/66; PULSE 84; RESP 21; TEMP 98.5; O2SAT 94
[2016-09-18 04:00] VITALS: BP 119/58; PULSE 75; RESP 22; TEMP 98.6; O2SAT 94
[2016-09-18] MEDS: metroNIDAZOLE 500 MG TAB PO SCH (05:37)
[2016-09-18 08:11] VITALS: BP 140/66; PULSE 77; RESP 18; TEMP 97.5; O2SAT 98
[2016-09-18] MEDS ORDERED: PANTOPRAZOLE SOD 40 MG DELAYED RELEASE TAB PO SCH (09:00)
[2016-09-18] MEDS: SULFAMETHOXAZOLE-TRIMETHOPRIM 400-80 MG TAB PO SCH (09:00)
[2016-09-18] MEDS: SODIUM CHLORIDE 0.9% FLUSH 5 ML FLUSH FLUSH SCH (09:01)
--- NOTE | 2016-09-18 10:54 | HHI.DCPOC ---
Discharge Care Plan Diagnosis: (1) GI bleed (2) Ischemic colitis Goals to Promote Your Health * To prevent worsening of your condition and complications * To maintain your health at the optimal level Directions to Meet Your Goals Take your medications as prescribed Follow your dietary instruction Follow activity as directed Keep your appointments as scheduled Take your immunizations and boosters as scheduled If your symptoms worsen call your PCP, if no PCP go to Urgent Care Center or Emergency Room Smoking is Dangerous to Your Health. Avoid second hand smoke Call the 24-hour hour crisis hotline for domestic abuse at Jeanne Bonds MD Sep 18, 2016 10:54
--- NOTE | 2016-09-18 10:57 | HHI.DS ---
Discharge Summary Admission Date Sep 14, 2016 at 21:09 Discharge Date: Sep 18, 2016 Admitting Diagnosis lower GI bleed (1) GI bleed ICD Code: K92.2 (2) Diverticulitis ICD Code: K57.92 (3) UTI (urinary tract infection) ICD Code: N39.0 Procedures 09-17-16 lonoscopy showed, small polyp ablated, significant ulceration in left colon C/w ischemia, and diverticulosis. Brief History - From Admission Patient is a 76-year-old female with history of hyperlipidemia and possible history of diverticular disease who complains of acute episode of bright red blood per rectum with some abdominal cramping. She had some nausea and recent diarrhea. She had been taken antidiarrheal [id number] and says that she has not been able to keep any food down. Patient has not had any actual vomiting per se but has been very nauseated and not eating. There is no fever. Her pain is mild and cramping and limited to the abdomen and relieved with defecation. She does see her tooth cutter spur Dr. Tello and has been recommended for further evaluation here in the hospital due to her bleeding. Hemoglobin has remained stable and her pain is relatively mild at this time. She she does still have some maroon colored stools. CBC/BMP: 09/16/16 0658 09/15/16 0655 Significant Findings Laboratory Tests Test 09/16/16 06:58 White Blood Count 11.4 TH/MM3 (4.0-11.0) Neutrophils (%) (Auto) 85.3 % (16.0-70.0) Lymphocytes (%) (Auto) 6.7 % (9.0-44.0) Neutrophils # (Auto) 9.7 TH/MM3 (1.8-7.7) Lymphocytes # (Auto) 0.8 TH/MM3 (1.0-4.8) Imaging Last Impressions Abdomen/Pelvis CT 09/15/16 0000 Signed Impressions: Service Date/Time: Thursday, September 15, 2016 14:42 - CONCLUSION: 1. Abnormal appearance to the descending colon with diffuse wall thickening and some mild induration of the fat in the paracolic gutter. There are no diverticula seen in the descending colon suggesting that this may be infectious or inflammatory process. 2. Sigmoid diverticulosis without evidence of induration of the fat about the sigmoid and without free fluid. 3. Steatosis of the liver. Patricio Ramirez MD PE at Discharge GENERAL: This is a well-nourished, well-developed patient, in no apparent distress. CARDIOVASCULAR: Regular rate and rhythm without murmurs, gallops, or rubs. RESPIRATORY: Clear to auscultation. Breath sounds equal bilaterally. No wheezes , rales, or rhonchi. GASTROINTESTINAL: Abdomen soft, non-tender, nondistended. Normal active bowel sounds MUSCULOSKELETAL: Extremities without clubbing, cyanosis, or edema. NEURO: Alert & Oriented x4 to person, place, time, situation. Moves all ext x4 Pt update on day of discharge Patient seen today in follow-up for discharge planning. No further bleeding. Hemoglobin remained stable. No new complaints per patient. Discharge plans discussed with patient and nursing team. Patient is agreeable. Medications discussed with patient Hospital Course This patient is a 76-year-old female and abdominal pain and had evidence of diverticular disease as well as ischemic colitis by colonoscopy. She was treated for the same. She was given antibiotics and was also found to have urinary tract infection which was a Klebsiella pneumonia which was treated with antibiotics also. Patient did well and was discharged home. She did not require transfusion throughout this hospitalization Pt Condition on Discharge: Good Discharge Disposition: Discharge Home Discharge Time: > 30 minutes Discharge Instructions DIET: Follow Instructions for: Diverticulitis Diet Activities you can perform: Regular-No Restrictions Follow up Referrals: Gastroenterology - 1 Month with beto New Medications: Metronidazole (Flagyl) 500 Mg Tab 500 MG PO Q8HR Infection #10 TAB Pantoprazole (Pantoprazole) 40 Mg Tab 40 MG PO DAILY gi #31 TAB Sulfamethoxazole-Trimethoprim (Bactrim) 400-80 Mg Tab 1 TAB PO Q12HR Infection #10 TAB Continued Medications: Calcium Carbonate (Calcium Oyster Shell) 1,250 Mg Tab 600 MG PO DAILY 1,250 mg calcium carbonate (500 mg elemental calcium) Calcium Supplement Ref 0 TAB Cholecalciferol (Vitamin D3) 1,000 Unit Tab 1000 UNITS PO DAILY Nutritional Supplement #1 Ref 0 BOTTLE Cyanocobalamin Inj (Cyanocobalamin Inj) 1,000 Mcg/Ml Inj 1000 MCG IM Q30D #1 Ref 0 VIAL Gabapentin (Gabapentin) 300 Mg Cap 300 MG PO BID #60 Ref 0 CAP Hydrocodone-Acetaminophen (Hydrocodone-Acetaminophen) 7.5-325 mg Tab 1 TAB PO BID PRN PAIN Ref 0 TAB Levothyroxine (Levothyroxine) 50 Mcg Tab 50 MCG PO DAILY Thyroid #30 Ref 0 TAB Montelukast (Montelukast) 10 Mg Tab 10 MG PO HS #30 Ref 0 TAB Simvastatin (Simvastatin) 20 Mg Tab 20 MG PO DAILY Cholesterol Management #30 Ref 0 TAB Discontinued Medications: Ranitidine (Zantac) 150 Mg Tab 150 MG PO DAILY Reduce Stomach Acid #30 Ref 0 TAB Jeanne Bonds MD Sep 18, 2016 10:57
--- NOTE | 2016-09-18 19:16 | HHI.GIFU ---
Subjective Remarks patient is doing well, no complains no abdominal pain, tolerating diet Objective Vitals I&O Vital Signs Date Time Temp Pulse Resp B/P Pulse Ox O2 Delivery O2 Flow Rate FiO2 09/18/16 08:11 97.5 77 18 140/66 98 09/18/16 04:00 98.6 75 22 119/58 94 09/18/16 00:00 98.5 84 21 145/66 94 09/17/16 20:00 98.2 86 18 113/56 92 I/O 09/17/16 09/17/16 09/17/16 09/18/16 09/18/16 09/18/16 07:00 15:00 23:00 07:00 15:00 23:00 Intake Total 240 ml 500 ml 1100 ml 240 ml Output Total 200 ml 200 ml Balance 240 ml 500 ml 900 ml 40 ml Intake Oral 240 ml 1100 ml 240 ml Other 500 ml Output Urine Total 200 ml 200 ml # Voids 3 3 # Bowel Movements 1 1 1 Laboratory Date/Time Procedure Status Source Growth 09/15/16 19:03 - Final Complete Stool Stool NO ENTERIC PATHOGENS DETECTED BY PCR... 09/15/16 19:03 Cancelled Stool Stool 09/14/16 19:45 Urine Culture - Final Complete Urine Clean Catch Klebsiella Pneumoniae Physical Exam HEENT: Pupils round and reactive to light; normocephalic; atraumatic; no jaundice. Throat is clear. NECK: Neck is supple, no JVD, no lymphadenopathy. CHEST: Chest is clear to auscultation and percussion. CARDIAC: Regular rate and rhythm with no murmur gallop or rubs. ABDOMEN: Soft, nondistended, minimal tender; no hepatosplenomegaly; bowel sounds are present in all four quadrants. EXTREMITIES: No clubbing, cyanosis, or edema. SKIN: Normal; no rash; no jaundice. FORKLIFT PICKER: No focal deficits; alert and oriented times three. Assessment and Plan Plan - Lower GI bleed associated with abdominal cramps and nausea- patient was in her usual state of health till yesterday morning when she developed acute episodes of bright red blood per rectum with some abdominal cramping. She does still have some maroon colored stools that started yesterday and continued through out the day till today morning, but the bleeding is less in amount. The pain is lower abdomen, some relief with defecation. She denies previous hx of this, denies alcohol, NSAIDs or blood thinner. Last EGD was many years ago. Hgb stable at 14.5, hemodynamically stable - IBS- Reports chronic diarrhea for years, this averages about 4 loose stools daily. By report, patient was evaluated by Dr. Samayoa and under went colonoscopy in February of last year to rule out colitis, however, this was normal colonoscopy and failed to reveal any abnormalities. She was advised to take Imodium as needed. A month ago, she was started on Hydrocodone and that helped slow down the diarrhea. - Chronic GERD which was maintained by Nexium, but that was discontinued thinking it might be the cause of the diarrhea, currently she is taking Zantac at home. - Hyperlipemia per attending 09-17-16 doing ok no GI bleed today, colonoscopy showed, small polyp ablated, significant ulceration in left colon C/w ischemia, and diverticulosis. 09-18-16 doing better, no active bleed tolerating diet, Plan: - diet advanced as tolerated - Await CT - ok to [facility], will need colonoscopy in 2 months - PPI Johana Ro MD Sep 18, 2016 19:16
== END 2016-09-18 12:23 | disposition home or self-care (01) | DRG 394 ==
LOC: PHED 17:30 → PHEDA 21:09 → PH3B 22:48
PROVIDERS: ADMIT Hospitalist; ATTEND Hospitalist
PROC: 0DBN8ZX Excision of Sigmoid Colon, Via Natural or Artificial Opening Endoscopic, Diagnostic (ICD-10-PCS; principal; 2016-09-17 07:30)
DX: K55.9 Vascular disorder of intestine, unspecified (principal); N39.0 Urinary tract infection, site not specified; K63.3 Ulcer of intestine; K57.92 Diverticulitis of intestine, part unspecified, without perforation or abscess without bleeding; E86.0 Dehydration; B96.1 Klebsiella pneumoniae [K. pneumoniae] as the cause of diseases classified elsewhere; E03.9 Hypothyroidism, unspecified; E78.5 Hyperlipidemia, unspecified; K21.9 Gastro-esophageal reflux disease without esophagitis; K57.90 Diverticulosis of intestine, part unspecified, without perforation or abscess without bleeding; D12.5 Benign neoplasm of sigmoid colon; K64.8 Other hemorrhoids; M81.0 Age-related osteoporosis without current pathological fracture; K58.0 Irritable bowel syndrome with diarrhea; Z88.0 Allergy status to penicillin; Z88.1 Allergy status to other antibiotic agents; Z88.5 Allergy status to narcotic agent; Z88.6 Allergy status to analgesic agent; Z88.7 Allergy status to serum and vaccine
CPT/HCPCS: 74176; 80053; 81001; 83690; 85025; 85610; 85730; 87077; 87086; 87186; 87328; 87329; 87493; 87506; 88305; 93005; 96361; 96374; C9113; J0744; J1200; J2405; J7030; Q9963